=== PATIENT | male | born 1990 | race Caucasian/White ===

== ENCOUNTER → 2017-04-19 | Outpatient (CLI) | payer BC ==
--- NOTE | 2017-04-19 23:02 | MR ---
EXAMINATION TYPE: MR lumbar spine wo con DATE OF EXAM: 04/19/2017 COMPARISON: CT abdomen and pelvis May 16, 2013. HISTORY: Low back pain x3 months TECHNIQUE: Multiplanar, multisequence imaging of the lumbar spine is performed without IV contrast. FINDINGS: Sagittal images of the lumbar spine show vertebral body heights and alignment to appear sat isfactory. There is disc desiccation L5-S1 level. Disc space heights are maintained. No large posteri or disc herniations are seen on sagittal images. The conus medullaris is normal in position and signa l ending at inferior L1 level. There is abnormal increased signal in spinal cord noted at superior T1 2 level on sagittal images 7 and 8. The bone marrow signal intensity is within normal limits. No sign ificant spurring is seen. Axial images show the T12-L1 and L1-L2 levels to appear within normal limits. Axial images at L2-L3 level mild broad-based posterior disc protrusion minimally effacing anterior th ecal sac, bilateral neural foramina are patent. Axial images at L3-L4 and L4-L5 levels are felt within normal limits. Axial images at L5-S1 level shows mild broad-based disc bulge and mild facet degenerative changes tonie aterally but spinal canal is preserved to bilateral neural foramina are patent. No suspicious retroperitoneal findings are seen. Paraspinal muscle bulk is maintained. IMPRESSION: Multilevel degenerative changes L2-L3 and L5-S1 level as detailed above. Nonspecific abno rmal signal distal spinal cord superior T12 level. Consider further investigation with contrast-enhan kelly MRI.
== END | disposition home or self-care (01) ==
LOC: RADMRIMAIN 17:41
PROVIDERS: ATTEND Family Medicine
DX: M47.817 Spondylosis without myelopathy or radiculopathy, lumbosacral region (principal)
CPT/HCPCS: 72148

== ENCOUNTER → 2017-05-10 | Outpatient (CLI) | payer BC ==
--- NOTE | 2017-05-10 14:23 | MR ---
Thoracic spine MRI with and without contrast HISTORY: Back pain Multiplanar multisequence and postcontrast images through the thoracic spine following 10 cc Gadavist IV Thoracic vertebral bodies show preserved height, alignment, and bone marrow signal. Disc spaces are m aintained. Dressing cord signal is normal. There is no abnormal enhancement following contrast admini stration. No significant spinal stenosis, foraminal encroachment, or evident disc herniation. There i s a mild spinal curvature. Sagittal localizer image shows a question of the syrinx within the cervical spine. IMPRESSION: Suspect syrinx may be present in the cervical cord, consider dedicated imaging. Possible spinal curvature.
== END | disposition home or self-care (01) ==
LOC: RADMRIMAIN 06:04
PROVIDERS: ATTEND Family Medicine
DX: M54.9 Dorsalgia, unspecified (principal)
CPT/HCPCS: 72157; A9581

== ENCOUNTER → 2017-06-13 | Outpatient (CLI) | payer BC ==
--- NOTE | 2017-06-13 08:43 | MR ---
EXAMINATION TYPE: MR cervical spine wo/w con DATE OF EXAM: 06/13/2017 COMPARISON: NONE HISTORY: Syringomyelia and syringobulbia Contrast: 10.5 mL Gadavist TECHNIQUE: Multiplanar, multisequence images of the cervical spine were acquired utilizing 10.5 mL intravenous G adavist gadolinium contrast. Diffusion weighted imaging was performed. C2-C3: No evidence for degenerative disc disease. No disc bulge/herniation or protrusion. No Canal stenosis. Foramina are patent bilaterally. C3-C4: No evidence for degenerative disc disease. No disc bulge/herniation or protrusion. No Canal stenosis. Foramina are patent bilaterally. C4-C5: No evidence for degenerative disc disease. No disc bulge/herniation or protrusion. No Canal stenosis. Foramina are patent bilaterally. C5-C6: No evidence for degenerative disc disease. No disc bulge/herniation or protrusion. No Canal stenosis. Foramina are patent bilaterally. C6-C7: No evidence for degenerative disc disease. No disc bulge/herniation or protrusion. No Canal stenosis. Foramina are patent bilaterally. C7-T1: No evidence for degenerative disc disease. No disc bulge/herniation or protrusion. No Canal stenosis. Foramina are patent bilaterally. Cervical segments are intact. There is normal alignment. Cervical spinal cord is of normal signal. Craniovertebral junction relationships are within normal limits. Thin linear area of signal well cir cumscribed within the cervical spinal cord centrally measuring 1 mm in thickness extending to the lev el of C7. No enhancement. IMPRESSION: There is a tiny area measuring 1 mm within the central margin the spinal cord extending from C2 throu gh C7. This most likely related to prominent central canal rather than tiny syrinx could be followed on a 6 month to one-year basis to confirm stability. No enhancement.
== END | disposition home or self-care (01) ==
LOC: RADMRIMAIN 07:40
PROVIDERS: ATTEND Neurological Surgery
DX: G95.0 Syringomyelia and syringobulbia (principal)
CPT/HCPCS: 72156; A9581

== ENCOUNTER 2019-07-05 10:39 | Emergency (ER) | payer BC ==
[2019-07-05 10:42] VITALS: BP 136/81; TEMP 98.3
[2019-07-05] MEDS ORDERED: methylPREDNISolone SOD SUCCI 125 MG/2 ML VIAL IM ONE (10:55)
[2019-07-05] MEDS ORDERED: IPRATROPIUM-ALBUTEROL 3 ML NEB INHALATION STA (10:55)
--- NOTE | 2019-07-05 10:59 | ED ---
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 He presents today requesting a coronavirus test. Patient has had a dry cough for the past 3 days. He does have history of asthma. Patient has had a fever 3 days ago but nothing at this time. Patient is in no significant distress. - Related Data Home Medications Medication Instructions Recorded Confirmed Albuterol Sulfate [Ventolin HFA] 1 puff INHALATION RT-QID PRN 07/05/19 07/05/19 Methocarbamol [Robaxin] 750 mg PO TID 07/05/19 07/05/19 guaiFENesin [Mucinex] 1,200 mg PO Q6H PRN 07/05/19 07/05/19 traMADol HCL [Ultram ER] 100 mg PO DAILY 07/05/19 07/05/19 Previous Rx's Medication Instructions Recorded Albuterol Inhaler [Ventolin Hfa 1 - 2 puff INHALATION RT-Q6H PRN 07/05/19 Inhaler] #1 inhaler predniSONE 50 mg PO DAILY #5 tablet 07/05/19 Allergies Allergy/AdvReac Type Severity Reaction Status Date / Time No Known Allergies Allergy Verified 07/05/19 11:18 Review of Systems ROS Statement: Those systems with pertinent positive or pertinent negative responses have been documented in the HPI. ROS Other: All systems not noted in ROS Statement are negative. Past Medical History Past Medical History: Asthma History of Any Multi-Drug Resistant Organisms: None Reported Past Surgical History: No Surgical Hx Reported Past Psychological History: No Psychological Hx Reported Smoking Status: Never smoker Past Alcohol Use History: None Reported Past Drug Use History: None Reported General Exam - General Exam Comments Initial Comments: 28 year old male, no distress. Limitations: no limitations General appearance: alert, in no apparent distress Head exam: Present: atraumatic, normocephalic, normal inspection Eye exam: Present: normal appearance, PERRL, EOMI. Absent: scleral icterus, conjunctival injection, periorbital swelling ENT exam: Present: normal exam, mucous membranes moist Neck exam: Present: normal inspection, full ROM. Absent: tenderness, meningismus, lymphadenopathy Respiratory exam: Present: wheezes (wheezing bilaterally). Absent: normal lung sounds bilaterally, respiratory distress, rales, rhonchi, stridor Cardiovascular Exam: Present: regular rate, normal rhythm, normal heart sounds. Absent: systolic murmur, diastolic murmur, rubs, gallop, clicks GI/Abdominal exam: Present: soft, normal bowel sounds. Absent: distended, tenderness, guarding, rebound, rigid Extremities exam: Present: normal inspection, full ROM, normal capillary refill. Absent: tenderness, pedal edema, joint swelling, calf tenderness Back exam: Present: normal inspection Neurological exam: Present: alert, oriented X3, CN II-XII intact Psychiatric exam: Present: normal affect, normal mood Skin exam: Present: warm, dry, intact, normal color. Absent: rash Course Vital Signs 07/05/19 07/05/19 07/05/19 10:40 11:15 11:24 Temperature 98.3 F Pulse Rate 71 72 Respiratory 18 16 Rate Blood Pressure 136/81 O2 Sat by Pulse 97 Oximetry Medical Decision Making - Medical Decision Making Transitional male with history of asthma presents today with wheezing, dry cough. Patient was told his primary care doctor to come for evaluation and testing for Covid. I discussed that he does not meet criteria at this time for Covid testing and otherwise appears well. He does have this dry cough. He is given IM Solu-Medrol for asthmatic exacerbation. He also was started on DuoNeb treatment in emergency department. Chest x-ray is negative. He is afebrile. He otherwise appears in no distress. I discussed return parameters to be followed. Disucssed quarentine procedures to be followed. - Radiology Data Radiology results: report reviewed Chest x-ray is negative for any acute process. Disposition Clinical Impression: Asthma exacerbation attacks, Cough, Suspected 2019-nCoV infection Disposition: HOME SELF-CARE Condition: Good Instructions (If sedation given, give patient instructions): Asthma (ED), Acute Bronchitis (ED) Additional Instructions: Patient advised to take the antibiotics and use of steroids as prescribed. Using her inhaler. We are not able to provide testing for Covid virus at this time. However, Patient should still practice procedures as if it possible to have the Covid 19 virus. Quarantine for 14 days, rest, remain hydrated. Follow up with PCP. Return if signs of respiratory distress. Prescriptions: predniSONE 50 mg PO DAILY #5 tablet Albuterol Inhaler [Ventolin Hfa Inhaler] 1 - 2 puff INHALATION RT-Q6H PRN #1 inhaler PRN Reason: Shortness Of Breath Is patient prescribed a controlled substance at d/c from ED?: No Referrals: Javy Pena DO [Primary Care Provider] - 1-2 days Time of Disposition: 11:39
[2019-07-05 11:16] VITALS: PULSE 72
[2019-07-05 11:31] VITALS: RESP 16
--- NOTE | 2019-07-05 11:34 | XR ---
EXAMINATION TYPE: XR chest 2V DATE OF EXAM: 07/05/2019 HISTORY: cough. REFERENCE: NONE. FINDINGS: The lungs are clear. Pleural space are clear. The heart is not enlarged. IMPRESSION: NO ACTIVE INTRATHORACIC DISEASE.
== END 2019-07-05 11:54 | disposition home or self-care (01) ==
LOC: EC 10:39
DX: J45.901 Unspecified asthma with (acute) exacerbation (principal); Z79.891 Long term (current) use of opiate analgesic; Z79.899 Other long term (current) drug therapy
CPT/HCPCS: 94640; 71046; 99284; 96372; J2930

== ENCOUNTER 2020-03-05 08:04 | Day surgery (SDC) | payer BC ==
[2020-03-03 14:32] VITALS: BMI 36.1
[~2020-03-05 08:04] MED LIST: LACTATED RINGERS 1,000 ML IV SCH
[2020-03-05 08:27] VITALS: RESP 16; TEMP 97.2
[2020-03-05] MEDS ORDERED: LIDOCAINE 1% (10MG/ML) FOR IV START INTRADERMA ONE (08:30)
[2020-03-05] MEDS ORDERED: PROPOFOL 10 MG/ML 20 ML VIAL IV ONE (09:21)
[2020-03-05] MEDS ORDERED: LIDOCAINE 1% INJ 10MG/ML (20 ML MDV) ONE (09:21)
--- NOTE | 2020-03-05 09:42 | P.PCN ---
Date of Procedure: 03/05/20 Procedure(s) Performed: BRIEF HISTORY: Patient is a 29-year-old pleasant male scheduled for an elective colonoscopy as a part of evaluation of chronic intermittent diarrhea for the last 2 years duration. He has the symptoms once or twice a week and lasts all day. PROCEDURE PERFORMED: Colonoscopy random biopsy PREOPERATIVE DIAGNOSIS: Lower abdominal pain and chronic intermittent diarrhea. IV sedation per Anesthesia. PROCEDURE: After informed consent was obtained, the patient, was brought into the endoscopy unit. IV sedation was administered by Anesthesia under continuous monitoring. Digital rectal examination was normal. Initially the Olympus CF-160 flexible video colonoscope was then inserted in the rectum, gradually advanced into the cecum without any difficulty. Careful examination was performed as the scope was gradually being withdrawn. Ileocecal valve and the appendiceal orifice were visualized and appeared normal. Prep was excellent. Mucosa of the cecum, ascending colon, transverse colon, descending colon, sigmoid colon, and rectum appeared normal. Retroflexion was performed in the rectum and no lesions were seen. Biopsies were done from ascending and descending colon to rule out microscopic/collagenous colitis. The patient tolerated the procedure well. IMPRESSION: Normal-appearing colon from rectum to cecum with no evidence of colorectal neoplasia or colitis. RECOMMENDATIONS: Findings of this examination were discussed with the patient as well as his family. She was advised to follow with the biopsy results..
[2020-03-05 10:43] VITALS: PULSE 69
[2020-03-05 10:52] VITALS: BP 130/87
== END 2020-03-05 11:04 | disposition home or self-care (01) ==
LOC: ORWHC2ENDO 08:04
PROVIDERS: ATTEND Internal Medicine Gastroenterology
DX: K52.9 Noninfective gastroenteritis and colitis, unspecified (principal)
CPT/HCPCS: 88305; 45380; J2001; J2704

== ENCOUNTER → 2020-04-13 | Outpatient (CLI) | payer BC ==
[2020-04-13 18:12] LABS: Gliadin AB IgA, Deaminated POSITIVE (NEGATIVE); Gliadin AB IgA, Unit 21.7 U/mL; Gliadin AB IgG, Deaminated NEGATIVE (NEGATIVE)
== END | disposition home or self-care (01) ==
LOC: LABWHC1 09:28
PROVIDERS: ATTEND Nurse Practitioner
DX: K58.0 Irritable bowel syndrome with diarrhea (principal)
CPT/HCPCS: 36415; 83516

== ENCOUNTER 2023-05-25 10:54 | Emergency (ER) | payer BC, OTHER ==
[2023-05-25 11:35] VITALS: TEMP 98.8
[2023-05-25] MEDS: SODIUM CHLORIDE 0.9% 2,000 ML IV STA (11:41)
[2023-05-25 11:48] LABS: Basophils # (A) 0.1 k/uL (0-0.2); Basophils % (A) 1 %; Eosinophils # (A) 0.2 k/uL (0-0.7); Eosinophils % (A) 2 %; HCT 45.4 % (39.0-53.0); HGB 15.6 gm/dL (13.0-17.5); Lymphocytes % (A) 20 %; MCH 30.9 pg (25.0-35.0); MCHC 34.3 g/dL (31.0-37.0); Mean Platelet Volume 7.3; Monocytes # (A) 0.6 k/uL (0-1.0); Monocytes % (A) 6 %; Neutrophils # (A) 7.1 k/uL (1.3-7.7); Neutrophils % (A) 71 %; Platelet Count 275 k/uL (150-450); RBC 5.04 m/uL (4.30-5.90); RDW 12.1 % (11.5-15.5)
[2023-05-25 12:00] LABS: Appearance,Urine Clear (Clear); Bilirubin,Urine Negative (Negative); Blood,Urine Small (Negative); Color,Urine Yellow; Glucose,Urine (UA) Negative (Negative); Ketones,Urine Negative (Negative); Leukocyte Esterase,Urine Negative (Negative); Mucus,Urine Many /hpf; Nitrite,Urine Negative (Negative); Protein,Urine Trace (Negative); RBC,Urine 34 /hpf (0-5); Specific Gravity,Urine 1.024 (1.001-1.035); Urobilinogen,Urine <2.0 mg/dL (<2.0); WBC,Urine 4 /hpf (0-5)
[2023-05-25 12:09] LABS: ALT 53 U/L (4-49); AST 49 U/L (17-59); African American GFR (CKD) >90 (>60 ml/min/1.73 sqM); Albumin 4.8 g/dL (3.5-5.0); Alkaline Phosphatase 69 U/L (38-126); Anion Gap 10 mmol/L; Blood Urea Nitrogen 12 mg/dL (9-20); Calcium 10.4 mg/dL (8.4-10.2); Carbon Dioxide 27 mmol/L (22-30); Chloride 105 mmol/L (98-107); Glucose 81 mg/dL (74-99); Lipase 155 U/L (23-300); Non-African American GFR(CKD) >90 (>60 ml/min/1.73 sqM); Potassium 4.6 mmol/L (3.5-5.1); Sodium 142 mmol/L (137-145); Total Bilirubin 0.8 mg/dL (0.2-1.3); Total Protein 7.8 g/dL (6.3-8.2)
--- NOTE | 2023-05-25 12:18 | ED ---
Abdominal Pain HPI - General Chief Complaint: Abdominal Pain Stated Complaint: Kidney stones Time Seen by Provider: 05/25/23 11:01 Source: patient, RN notes reviewed Mode of arrival: ambulatory Limitations: no limitations - History of Present Illness Initial Comments: 32-year-old male presents emergency department chief complaint of right-sided abdominal pain. Patient states there is a sudden onset of pain states pain has subsided some. He does have a history of kidney stones. Pain radiates slightly down to his back and into his scrotum. He states it reminds him of his prior kidney stone but also was concerned about possible appendicitis. The patient did admit to some nausea without vomiting no fevers or chills no change in bowel habits. - Related Data Home Medications Medication Instructions Recorded Confirmed ALPRAZolam [Xanax] 0.5 mg PO DAILY PRN 05/25/23 05/25/23 Albuterol Inhaler [Ventolin Hfa 2 puff INHALATION RT-Q4H PRN 05/25/23 05/25/23 Inhaler] traMADol HCL [Ultram ER] 100 mg PO BID 05/25/23 05/25/23 Previous Rx's Medication Instructions Recorded Ketorolac [Toradol] 10 mg PO Q8HR #15 tab 05/25/23 Ondansetron Odt [Zofran Odt] 4 mg PO Q8HR PRN #10 tab 05/25/23 Tamsulosin [Flomax] 0.4 mg PO DAILY #7 cap 05/25/23 Allergies Allergy/AdvReac Type Severity Reaction Status Date / Time venom-honey bee Allergy Anaphylaxis Verified 05/25/23 11:53 Review of Systems ROS Statement: Those systems with pertinent positive or pertinent negative responses have been documented in the HPI. ROS Other: All systems not noted in ROS Statement are negative. Past Medical History Past Medical History: Asthma Additional Past Medical History / Comment(s): ABD. PAIN, FREQUENT DIARRHEA History of Any Multi-Drug Resistant Organisms: None Reported Past Surgical History: No Surgical Hx Reported Additional Past Surgical History / Comment(s): RFA ON BACK. STEROID INJECTIONS IN BACK Past Anesthesia/Blood Transfusion Reactions: No Reported Reaction Past Psychological History: No Psychological Hx Reported Smoking Status: Never smoker Past Alcohol Use History: None Reported Past Drug Use History: None Reported - Past Family History Mother Family Medical History: No Reported History General Exam Limitations: no limitations General appearance: alert, in no apparent distress Head exam: Present: atraumatic, normocephalic, normal inspection Neck exam: Present: normal inspection, full ROM. Absent: tenderness, meningism us, lymphadenopathy Respiratory exam: Present: normal lung sounds bilaterally. Absent: respiratory distress, wheezes, rales, rhonchi, stridor Cardiovascular Exam: Present: regular rate, normal rhythm, normal heart sounds. Absent: systolic murmur, diastolic murmur, rubs, gallop, clicks GI/Abdominal exam: Present: soft, normal bowel sounds. Absent: distended, tenderness, guarding, rebound, rigid Back exam: Absent: CVA tenderness (R), CVA tenderness (L) Course Vital Signs 05/25/23 05/25/23 11:06 12:52 Temperature 98.8 F Pulse Rate 79 78 Respiratory 20 18 Rate Blood Pressure 138/92 134/84 O2 Sat by Pulse 99 97 Oximetry Medical Decision Making - Medical Decision Making Was pt. sent in by a medical professional or institution (, PA, THERMITE WELDER, urgent care, hospital, or skilled nursing...) When possible be specific @ -No Did you speak to anyone other than the patient for history (EMS, parent, family, police, friend...)? What history was obtained from this source @ -No Did you review nursing and triage notes (agree or disagree)? Why? @ -I reviewed and agree with nursing and triage notes Were old charts reviewed (outside hosp., previous admission, EMS record, old EKG, old radiological studies, urgent care reports/EKG's, skilled nursing records)? Report findings @ -No old charts were reviewed Differential Diagnosis (chest pain, altered mental status, abdominal pain women, abdominal pain men, vaginal bleeding, weakness, fever, dyspnea, syncope, headache, dizziness, GI bleed, back pain, seizure, CVA, palpatations, mental health, musculoskeletal)? @ -[Differential Abdominal Pain Men: Appendicitis, cholecystitis, diverticulosis, ischemic bowel, pancreatitis, hepatitis, UTI, gastroenteritis, AAA, incarcerated hernia, bowel obstruction, constipation, inflammatory bowel, hepatitis, peptic ulcer disease, splenic infarction, perforated viscus, testicular torsion, this is not meant to be an all-inclusive list EKG interpreted by me (3pts min.). @ -None X-rays interpreted by me (1pt min.). @ -[X KUB does not show definite nephrolithiasis, there is moderate stool in the right CT interpreted by me (1pt min.). @ -[None done U/S interpreted by me (1pt. min.). @ -None done What testing was considered but not performed or refused? (CT, X-rays, U/S, labs)? Why? @ -Consider CT though patient's pain has improved, patient does have a history of kidney stones with hematuria What meds were considered but not given or refused? Why? @ -None Did you discuss the management of the patient with other professionals (professionals i.e. DrNic, PA, THERMITE WELDER, lab, RT, psych nurse, social service director, clean room technician, teacher, aerospace engineer officer armament, case investigator)? Give summary @ -No Was smoking cessation discussed for >3mins.? @ -No Was critical care preformed (if so, how long)? @ -No Were there social determinants of health that impacted care today? How? (Homelessness, low income, unemployed, alcoholism, drug addiction, transportation, low edu. Level, literacy, decrease access to med. care, snf, re hab)? @ -No Was there de-escalation of care discussed even if they declined (Discuss DNR or withdrawal of care, Hospice)? DNR status @ -No What co-morbidities impacted this encounter? (DM, HTN, Smoking, COPD, CAD, Cancer, CVA, ARF, Chemo, Hep., AIDS, mental health diagnosis, sleep apnea, morbid obesity)? @ -None Was patient admitted / discharged? Hospital course, mention meds given and route, prescriptions, significant lab abnormalities, going to OR and other pertinent info. @ -Patient presented right flank pain patient has a history of kidney stones with notable hematuria pain was similar to prior stones. Patient's laboratory studies unremarkable be discharged with close follow-up and analgesics. Undiagnosed new problem with uncertain prognosis? @ -No Drug Therapy requiring intensive monitoring for toxicity (Heparin, Nitro, Insulin, Cardizem)? @ -No Were any procedures done? @ -No Diagnosis/symptom? @ -[Kidney stone, abdominal pain Acute, or Chronic, or Acute on Chronic? @ -Acute Uncomplicated (without systemic symptoms) or Complicated (systemic symptoms)? @ -[Uncomplicated Side effects of treatment? @ -[No Exacerbation, Progression, or Severe Exacerbation? @ -No Poses a threat to life or bodily function? How? (Chest pain, [place], NH, pneumonia, PE, COPD, DKA, ARF, appy, cholecystitis, CVA, Diverticulitis, Homicidal, Suicidal, threat to staff... and all critical care pts) @ -No - Lab Data Result diagrams: 05/25/23 11:36 05/25/23 11:36 Lab Results 05/25/23 05/25/23 05/25/23 Range/Units 11:36 11:36 11:46 WBC 10.0 (3.8-10.6) k/uL RBC 5.04 (4.30-5.90) m/uL Hgb 15.6 (13.0-17.5) gm/dL Hct 45.4 (39.0-53.0) % MCV 90.0 (80.0-100.0) fL MCH 30.9 (25.0-35.0) pg MCHC 34.3 (31.0-37.0) g/dL RDW 12.1 (11.5-15.5) % Plt Count 275 (150-450) k/uL MPV 7.3 Neutrophils % 71 % Lymphocytes % 20 % Monocytes % 6 % Eosinophils % 2 % Basophils % 1 % Neutrophils # 7.1 (1.3-7.7) k/uL Lymphocytes # 2.0 (1.0-4.8) k/uL Monocytes # 0.6 (0-1.0) k/uL Eosinophils # 0.2 (0-0.7) k/uL Basophils # 0.1 (0-0.2) k/uL Sodium 142 (137-145) mmol/L Potassium 4.6 (3.5-5.1) mmol/L Chloride 105 (98-107) mmol/L Carbon Dioxide 27 (22-30) mmol/L Anion Gap 10 mmol/L BUN 12 (9-20) mg/dL Creatinine 0.97 (0.66-1.25) mg/dL Est GFR (CKD-EPI)AfAm >90 (>60 ml/min/1.73 sqM) Est GFR (CKD-EPI)NonAf >90 (>60 ml/min/1.73 sqM) Glucose 81 (74-99) mg/dL Calcium 10.4 H (8.4-10.2) mg/dL Total Bilirubin 0.8 (0.2-1.3) mg/dL AST 49 (17-59) U/L ALT 53 H (4-49) U/L Alkaline Phosphatase 69 (38-126) U/L Total Protein 7.8 (6.3-8.2) g/dL Albumin 4.8 (3.5-5.0) g/dL Lipase 155 (23-300) U/L Urine Color Yellow Urine Appearance Clear (Clear) Urine pH 6.0 (5.0-8.0) Ur Specific [place] 1.024 (1.001-1.035) Urine Protein Trace H (Negative) Urine Glucose (UA) Negative (Negative) Urine Ketones Negative (Negative) Urine Blood Small H (Negative) Urine Nitrite Negative (Negative) Urine Bilirubin Negative (Negative) Urine Urobilinogen <2.0 (<2.0) mg/dL Ur Leukocyte Esterase Negative (Negative) Urine RBC 34 H (0-5) /hpf Urine WBC 4 (0-5) /hpf Urine Mucus Many H (None) /hpf Disposition Clinical Impression: Kidney stone on right side Disposition: HOME SELF-CARE Condition: Stable Instructions (If sedation given, give patient instructions): Kidney Stones (ED) Additional Instructions: Please return to the Emergency Department if symptoms worsen or any other concerns. Prescriptions: Tamsulosin [Flomax] 0.4 mg PO DAILY #7 cap Ketorolac [Toradol] 10 mg PO Q8HR #15 tab Ondansetron Odt [Zofran Odt] 4 mg PO Q8HR PRN #10 tab PRN Reason: Nausea Is patient prescribed a controlled substance at d/c from ED?: No Referrals: Javy Pena DO [Primary Care Provider] - 1-2 days Time of Disposition: 12:34
[2023-05-25] MEDS: KETOROLAC 15 MG/ML 1 ML VIAL IVP STA (12:24)
--- NOTE | 2023-05-25 12:31 | XR ---
EXAMINATION TYPE: XR KUB DATE OF EXAM: 05/25/2023 11:48 AM CLINICAL INDICATION:Male, 32 years old with history of abdominal pain; COMPARISON: None. TECHNIQUE: One radiographic view of the abdomen was obtained. FINDINGS: There is a moderate amount of stool in the right colon. No renal calculi definitively visua lized which may be partially scribed obscured by bowel. The bowel gas pattern is nonspecific without dilated loops of small or large bowel. There is no evidence for organomegaly or pneumoperitoneum. Th e osseous structures are intact. Fecal material and gas are demonstrated throughout the colon and re ctum. IMPRESSION: Moderate amount stool in the right colon. Otherwise a nonspecific bowel gas pattern without radiograp hic evidence for acute process.
[2023-05-25] MEDS: ACET/COD 300 MG/30 MG STARTER PACK 6 TAB BTL PO STA (12:45)
[2023-05-25 13:07] VITALS: BP 134/84; PULSE 78; RESP 18
== END 2023-05-25 12:53 | disposition home or self-care (01) ==
LOC: EC 10:54
DX: N20.0 Calculus of kidney (principal); J45.909 Unspecified asthma, uncomplicated; Z79.899 Other long term (current) drug therapy; Z91.030 Bee allergy status
CPT/HCPCS: 36415; 80053; 83690; 85025; 81001; 74018; 99284; 96374; 96361; J1885